=== PATIENT | male | born 1985 | race Caucasian/White ===

== ENCOUNTER 2017-11-19 20:40 | Observation (INO) ==
[2017-11-19] MEDS ORDERED: Ziprasidone injection 20 MG/ML VIAL IM ONE (21:15)
[2017-11-19 21:23] LABS: Basophils % 0.3 %; Eosinophils # 0.2 K/mcL (0.0-0.6); Eosinophils % 1.4 %; Hematocrit 48.1 % (37.5-50.1); Hemoglobin 15.9 g/dL (12.9-16.9); Immature Granulocytes % 0.4 % (0-4); Lymphocytes % 28.9 %; Mean Corpuscular HGB Conc 33.1 g/dL (31.6-35.5); Mean Corpuscular Hemoglobin 29.7 pg (28.0-33.3); Mean Corpuscular Volume 89.9 fL (83.0-100.0); Mean Platelet Volume 9.8 fL (9.4-12.4); Monocytes # 0.6 K/mcL (0.0-1.3); Monocytes % 5.9 %; Neutrophils # 6.5 K/mcL (1.6-8.9); Nucleated Red Blood Cells 0.2 /100 WBC (0); Platelet Count 357 K/mcL (140-400); Red Blood Count 5.35 M/mcL (4.19-5.50); Red Cell Distribution Width 12.7 % (11.5-14.5); Segmented Neutrophils % 63.1 %
[2017-11-19 21:29] LABS: Bilirubin,Urine Negative (Negative); Blood,Urine Negative (Negative); Clarity,Urine Clear (Clear); Color,Urine Yellow (Yellow); Glucose,Urine (UA) Normal (Normal); Ketones,Urine Negative (Negative); Leukocyte Esterase,Urine Negative (Negative); Nitrite,Urine Negative (Negative); Protein,Urine Negative (Neg-Trace); Specific Gravity,Urine 1.012 (1.010-1.025); Urobilinogen,Urine Normal (Normal)
[2017-11-19 21:37] LABS: Amphetamine Screen,Urine Negative ng/mL (Cutoff=1000); Barbiturate Screen,Urine Negative ng/mL (Cutoff=200); Benzodiazepines Screen,Urine Negative ng/mL (Cutoff=200); Cannabinoid Screen,Urine Negative ng/mL (Cutoff = 50); Cocaine Screen,Urine Negative ng/mL (Cutoff= 300); Opiate Screen,Urine Negative ng/mL (Cutoff=300); Phencyclidine Screen,Urine Negative ng/mL (Cutoff=25)
[2017-11-19 21:41] LABS: Ethanol 290 mg/dL (0-10)
[2017-11-19 21:45] LABS: BUN/Creatinine Ratio 10 (6-26); Blood Urea Nitrogen 9 mg/dL (6-20); Calcium 9.2 mg/dL (8.6-10.3); Carbon Dioxide 26 mEq/L (23-29); Chloride 105 mEq/L (98-107); Glucose 142 mg/dL (70-105); Osmolality,Calculated 287 (280-300); Potassium 4.2 mEq/L (3.5-5.1); Sodium 138 mEq/L (136-145); eGFR For African Americans > 60 (> 60); eGFR For Non-African Americans > 60 (> 60)
[2017-11-19 21:47] LABS: Acetaminophen < 1.0 mcg/mL (10-30); Salicylate < 5.0 mg/dL (15.0-30.0)
--- NOTE | 2017-11-19 21:54 | Emergency Department Note ---
START Narrative - START START: I examined this patient and my medical decision-making was reviewed with the Resident Physician. I agree with the documented findings, disposition and treatment plan as described except to the extent set forth below. 32 year old male present to the ED with complaints of SI/HI and was brought in by his family memebers due to intoxication. We will do a medical clearance and then consult 1A. Likely we will need to do a medical admit to medicine due to chronic alcoholism and consideration for withdrawl and need to be placed on CIWA protocol.
--- NOTE | 2017-11-19 23:35 | Emergency Department Note ---
Disposition Clinical Impression: Suicidal ideation, Intoxication Disposition: Admitted As Inpatient Condition: Good Referrals: NONE,PCP [Primary Care Provider] - General Adult HPI - General Chief complaint: ED Psychiatric Symptoms Stated complaint: SI/HI Time Seen by Provider: 11/19/17 20:49 Source: patient Limitations: no limitations Nursing Notes Reviewed: Yes Vital Signs Reviewed: Yes - History of Present Illness HPI Narrative: Patient presents today for evaluation of suicidal ideation. Patient has had alcohol problems. Patient is brought in by mother as he said he was trying to leave the house and the aspirate was going and he said he was going to kill himself. The patient is clinically intoxicated. Patient states that he does not know why he is here. Hhe said that he did not mean those things. Patient is threatening staff and is threatening to leave. Patient is mildly agitated. Patient will require some mild sedation. History of chronic alcohol use. Patient has gone through alcohol withdrawal in the past Pain Scale: 4 - Related Data Home Medications Medication Instructions Recorded Confirmed No Known Home Drugs 11/19/17 11/19/17 Allergies Allergy/AdvReac Type Severity Reaction Status Date / Time No Known Allergies Allergy Verified 04/05/17 22:27 Limitations: ROS unobtainable due to patients medical condition Past Medical History - Past Medical History Medical history: Reports: no medical history Surgical history: Reports: other Psychiatric history: Reports: no psych history - Social History Smoking Status: Current every day smoker Smokeless Tobacco Status: No Alcohol use: Reports: occasionally Drug use: Reports: none Physical Exam General: Well appearing, nontoxic, no acute distress Head: Normocephalic Atraumatic Eyes: PERRL, EOMI ENT: Airway patent, no stridor Neck: supple, no meningismus Chest: Lungs clear to auscultation bilateral Cardiac: Regular rate and rhythm, no murmurs, rubs or gallops Abdomen: soft, nontender, nondistended; no guarding, rebound, or tenderness to percussion Musculoskeletal: Calves symmetric, nontender, no palpable cord Skin: No rash, normal skin tone Neuro: Alert and Oriented to person, place, and time; No focal deficit, CN 2-12 symmetric and intact - General Limitations: no limitations General appearance: alert, in no apparent distress Course - Reevaluation(s) Reevaluation #1: Patient's blood alcohol significantly elevated. Patient will require 10 hours of observation in order to undergo one a evaluation. Patient will be admitted for observation until cleared for psychiatric evaluation. A psychiatric hold has been placed. - Consultations Consultation #1: Discussed with hospitalist. Patient has been accepted for admission. Vital Signs Temperature 97.8 F 11/19/17 20:44 Pulse Rate 119 11/19/17 20:44 Respiratory Rate 18 11/19/17 20:44 Blood Pressure 129/81 11/19/17 20:44 O2 Sat by Pulse Oximetry 96 11/19/17 20:44 Temperature 97.8 F 11/19/17 20:44 Pulse Rate 119 11/19/17 20:44 Respiratory Rate 18 11/19/17 20:44 Blood Pressure 129/81 11/19/17 20:44 O2 Sat by Pulse Oximetry 96 11/19/17 20:44 Oxygen Delivery Oxygen Delivery Room Air Medical Decision Making - Lab Data Result diagrams: 11/19/17 20:58 11/19/17 20:58 Lab Results 11/19/17 11/19/17 11/19/17 Range/Units 20:58 20:58 21:15 WBC 10.4 (4.3-11.1) K/mcL RBC 5.35 (4.19-5.50) M/mcL Hgb 15.9 (12.9-16.9) g/dL Hct 48.1 (37.5-50.1) % MCV 89.9 (83.0-100.0) fL MCH 29.7 (28.0-33.3) pg MCHC 33.1 (31.6-35.5) g/dL RDW 12.7 (11.5-14.5) % Plt Count 357 (140-400) K/mcL MPV 9.8 (9.4-12.4) fL Immature Gran % 0.4 (0-4) % Seg Neutrophils % 63.1 % Lymphocytes % 28.9 % Monocytes % 5.9 % Eosinophils % 1.4 % Basophils % 0.3 % Neutrophils # 6.5 (1.6-8.9) K/mcL Lymphocytes # 3.0 (0.6-4.6) K/mcL Monocytes # 0.6 (0.0-1.3) K/mcL Eosinophils # 0.2 (0.0-0.6) K/mcL Basophils # 0.0 (0.0-0.2) K/mcL Nucleated RBCs/100 WBC 0.2 H (0) /100 WBC Sodium 138 (136-145) mEq/L Potassium 4.2 (3.5-5.1) mEq/L Chloride 105 (98-107) mEq/L Carbon Dioxide 26 (23-29) mEq/L BUN 9 (6-20) mg/dL Creatinine 0.89 (0.70-1.30) mg/dL Est GFR ( Amer) > 60 (> 60) Est GFR (Non-Af Amer) > 60 (> 60) BUN/Creatinine Ratio 10 (6-26) Glucose 142 H (70-105) mg/dL Calculated Osmolality 287 (280-300) Calcium 9.2 (8.6-10.3) mg/dL Urine Color Yellow (Yellow) Urine Clarity Clear (Clear) Urine pH 6.0 (5.0-8.0) pH Units Ur Specific [place] 1.012 (1.010-1.025) Urine Protein Negative (Neg-Trace) mg/dL Urine Glucose (UA) Normal (Normal) mg/dL Urine Ketones Negative (Negative) mg/dL Urine Blood Negative (Negative) Urine Nitrite Negative (Negative) Urine Bilirubin Negative (Negative) Urine Urobilinogen Normal (Normal) mg/dL Ur Leukocyte Esterase Negative (Negative) Salicylates < 5.0 L (15.0-30.0) mg/dL Urine Opiates Screen (Yfgzpt=350) ng/mL Acetaminophen < 1.0 L (10-30) mcg/mL Ur Barbiturates Screen (Xauzxh=889) ng/mL Ur Phencyclidine Scrn (Cutoff=25) ng/mL Ur Amphetamines Screen (Zcnwlv=2034) ng/mL U Benzodiazepines Scrn (Bzwjyq=033) ng/mL Urine Cocaine Screen (Cutoff= 300) ng/mL U Marijuana (THC) Screen (Cutoff = 50) ng/mL Ethyl Alcohol 290 H (0-10) mg/dL 11/19/17 Range/Units 21:15 WBC (4.3-11.1) K/mcL RBC (4.19-5.50) M/mcL Hgb (12.9-16.9) g/dL Hct (37.5-50.1) % MCV (83.0-100.0) fL MCH (28.0-33.3) pg MCHC (31.6-35.5) g/dL RDW (11.5-14.5) % Plt Count (140-400) K/mcL MPV (9.4-12.4) fL Immature Gran % (0-4) % Seg Neutrophils % % Lymphocytes % % Monocytes % % Eosinophils % % Basophils % % Neutrophils # (1.6-8.9) K/mcL Lymphocytes # (0.6-4.6) K/mcL Monocytes # (0.0-1.3) K/mcL Eosinophils # (0.0-0.6) K/mcL Basophils # (0.0-0.2) K/mcL Nucleated RBCs/100 WBC (0) /100 WBC Sodium (136-145) mEq/L Potassium (3.5-5.1) mEq/L Chloride (98-107) mEq/L Carbon Dioxide (23-29) mEq/L BUN (6-20) mg/dL Creatinine (0.70-1.30) mg/dL Est GFR ( Amer) (> 60) Est GFR (Non-Af Amer) (> 60) BUN/Creatinine Ratio (6-26) Glucose (70-105) mg/dL Calculated Osmolality (280-300) Calcium (8.6-10.3) mg/dL Urine Color (Yellow) Urine Clarity (Clear) Urine pH (5.0-8.0) pH Units Ur Specific [place] (1.010-1.025) Urine Protein (Neg-Trace) mg/dL Urine Glucose (UA) (Normal) mg/dL Urine Ketones (Negative) mg/dL Urine Blood (Negative) Urine Nitrite (Negative) Urine Bilirubin (Negative) Urine Urobilinogen (Normal) mg/dL Ur Leukocyte Esterase (Negative) Salicylates (15.0-30.0) mg/dL Urine Opiates Screen Negative (Cxwoem=837) ng/mL Acetaminophen (10-30) mcg/mL Ur Barbiturates Screen Negative (Iazyjj=476) ng/mL Ur Phencyclidine Scrn Negative (Cutoff=25) ng/mL Ur Amphetamines Screen Negative (Myhavx=1380) ng/mL U Benzodiazepines Scrn Negative (Tofwsb=928) ng/mL Urine Cocaine Screen Negative (Cutoff= 300) ng/mL U Marijuana (THC) Screen Negative (Cutoff = 50) ng/mL Ethyl Alcohol (0-10) mg/dL
[2017-11-20] MEDS ORDERED: Naloxone 0.4 MG/ML INJ IVP PRN (04:53)
[2017-11-20] MEDS ORDERED: Acetaminophen 325 MG TABLET PO PRN (04:53)
[2017-11-20] MEDS ORDERED: MVI, adult with vitamin K 10 ML in 0.9 % Sodium Chloride 1,000 ML IVC ONE (04:56)
--- NOTE | 2017-11-20 05:04 | Internal Med History&Physical ---
Date of Encounter: 11/20/17 Time of Encounter: 04:59 Assessment and Plan (1) Suicidal ideation Current visit: Yes Status: Acute 32/male History of chronic alcoholism. Brought by mother as patient was threatening to harm himself. We educated the patient in the emergency room. He was given Geodon and after that he was calm down. On examination: Patient is in a deep sleep in observation unit. No obvious signs of trauma seen. Assessment: Suicidal ideation in a intoxicated person secondary to alcohol Plan: Admit as observation. Been on her back. Pain control with Tylenol. Consult psychiatric. Consult social media senior associate. Presently keep nothing by mouth. Patient on me that he does not want to harm himself what he said to his mother was under the influence of alcohol. I explained patient once the psychiatry evaluates him he can present his case to them. (2) Intoxication Current visit: Yes Status: Acute See above I do not think patient will go into delirium tremens at this point. But for a precautionary measure we will continue to assess CIWA scale (3) DVT prophylaxis Current visit: Yes Status: Acute scd Medical decision making: This patient has a moderate to severe risk of worsening in spite of being on appropriate medication due to the underlying comorbidities. Internal Medicine - H&P: HPI Chief complaint: Suicidal ideation/ethanol overdose. Admitted From: Emergency Dept Plans for Post Hospital Care: Home History of present illness: Mr. Martin is a 32 year old male who does not have primary care provider. Patient does not have any comorbid condition except chronic alcohol use. Patient had multiple episodes of alcohol withdrawal in the past. Patient was brought to the emergency room by his mother as she was concerned about patient. Patient has multiple times told his mother that he is going to hurt himself and possibility that he might end his life. Patient was pretty sure and form regarding this. This was the reason patient's mother was really concerned and she brought him to the emergency department for further evaluation. Emergency Department patient was agitated, was threatening to leave AGAINST MEDICAL ADVICE, was threatening to kill himself and this was the reason he received sedation. Reason for admission: Suicidal ideation in a patient who his intoxicated with alcohol. Alcohol level is 290 upon admission. She was pink slipped in the emergency department and transferred to medicine floor for further evaluation along with psych assessment. Patient is very intoxicated and above information I received from one-to-one communication with the ER physician/ER documentation and discussion with the ER nurses. Past Med Surg Social Fam HX - Past Medical History Medical history: no medical history Psychiatric history: no psych history - Past Surgical History Surgical History: other - Social History Smoking Status: Current every day smoker Smokeless Tobacco Status: No Alcohol use: occasionally Drug use: none - Family History Mother History Unknown: Yes Father History Unknown: Yes Internal Medicine - H&P: Meds No Known Home Drugs 11/19/17 [History] 3 Allergy/AdvReac Type Severity Reaction Status Date / Time No Known Allergies Allergy Verified 04/05/17 22:27 ROS unobtainable: due to mental status All Systems PM: A 10-system review of systems was performed and is negative for pertinent findings except as documented above in the HPI. - Constitutional Vitals: Temp Pulse Resp BP Pulse Ox 97.6 F 84 17 93/59 93 11/20/17 02:30 11/20/17 02:30 11/20/17 02:30 11/20/17 02:30 11/20/17 02:30 General appearance: Present: A&O X 2, pleasant, no acute distress - Head Head exam: Present: atraumatic, normocephalic - Eye Eye exam: Present: PERRL, conjuntiva pink, sclera anicteric Pupils: Present: PERRL - Neck Neck exam general surgery: Present: supple, trachea midline. Absent: lymphadenopathy - Respiratory Respiratory exam: Present: CTAB. Absent: accessory muscle use, rales, rhonchi, wheezes - Cardiovascular Cardiovascular exam: Present: RRR, +S1, +S2. Absent: diastolic murmur, gallop, rubs, systolic murmur - GI/Abdominal GI/Abdominal exam: Present: normal bowel sounds, soft, no peritoneal signs. Absent: distended, tenderness - Extremities Exam Extremities exam: Present: warm, radial pulses palpable and symmetrical. Absent : calf tenderness, cyanotic, pedal edema - Neurological Exam Neurological exam: Present: CN II-XII intact, oriented X3, no focal deficits. Absent: pronater drift, facial droop, speech deficit - Skin Skin exam: Present: dry, intact Internal Med - H&P Results - Labs CBC & Chem 7: 11/19/17 20:58 11/19/17 20:58
[2017-11-20 12:18] VITALS: BP 122/76
--- NOTE | 2017-11-20 13:55 | Consult Note ---
Date of Encounter: 11/20/17 Time of Encounter: 13:40 Assessment & Recommendation (1) Substance induced mood disorder Current visit: Yes Status: Acute Assessment & Recommendation: Client is denying SI and denying need for mental health services. Spoke with mother who feels alcohol dependence is the primary issue. She states client did well in rehab and she would like to see him do this again. She understands client would need to go voluntarily. Would recommend a social work consult for inpatient residential placement. Client would likely benefit from an antidepressant but he is not interested at this time and he can likely start one in a rehab facility if he changes his mind. History of Present Illness Requesting Physician: Dorinda Matta CNP Reason for consult: etoh dep, possible SI History of present illness: Mr. Martin is a 32 year old male who was brought to the ER in an intoxicated state. Mother reported to staff that client had threatened to go off and kill himself. On eval today client is denying everything. He admits to being drunk but denies he is suicidal. Claims he does not remember if he threatened to harm himself but denies intention of harming self at this time. Not currently linked with mental health services. Denies he wants linked with mental health services. Denies having a mental health history. No interest in medications or treatment for depression. Lives at home with mother. Client gave verbal permission for this program writer to speak with his mother, Lore Martin. This program writer called his mother and she reports client has been abusing alcohol heavily. She thinks alcohol is his main problem. Client recently lost job and is not able to see his child due to alcohol use. Has been through rehab in the past. Mother reports client was doing great when he was in rehab and she would like to see him get that help again. Mother states she does not believe client is a risk to himself if he can get help with his drinking. Discussed how referrals/recommendations can be made but that client will need to go voluntarily. Discussed how involuntary psychiatric hospitalization is an option but that sometimes this restriction on one's freedom can make things worse. Mother expressed understanding and indicated she felt his alcohol dependence was the main concern. CC: Dorinda Matta CNP Past Med Surg Social Fam HX - Past Medical History Medical history: no medical history - Past Psychiatric History Psychiatric history: Reports: depression Family psychiatric history: Unknown Family History of Suicide: Unknown - Past Surgical History Surgical History: other - Social History Smoking Status: Current every day smoker Smokeless Tobacco Status: No Alcohol use: occasionally Drug use: none - Family History Mother History Unknown: Yes Father History Unknown: Yes Medications & Allergies No Known Home Drugs 11/19/17 [History] 3 Allergy/AdvReac Type Severity Reaction Status Date / Time No Known Allergies Allergy Verified 04/05/17 22:27 Review of Systems Constitutional: Denies: fever, chills, weakness, weight change Eyes: Denies: eye pain, vision change Ears, Nose, Throat: Denies: ear pain, throat pain, dental pain, hearing loss, congestion Cardiovascular: Denies: chest pain, palpitations, dyspnea on exertion Respiratory: Denies: cough, dyspnea, wheezes Gastrointestinal: Denies: abdominal pain, nausea, vomiting, diarrhea, constipation Genitourinary male: Denies: urgency, dysuria, frequency, genital lesions Genitourinary female: Denies: urgency, dysuria, frequency, abnormal menses, dyspareunia Musculoskeletal: Denies: joint swelling, joint pain Integumentary: Denies: rash, lesions, pruritus Neurological: Denies: headache, weakness, numbness, memory loss Endocrine: Denies: fatigue, heat or cold intolerance Hematologic/Lymphatic: Denies: easy bruising, lymphadenopathy Allergic/Immunologic: Denies: urticaria, itchy eyes Mental Status Exam Patient orientation: Yes Person, Yes Time, Yes Place Level of alertness: Alert Patient appearance: Disheveled Behavior: guarded Psychomotor activity: Normal Eye contact: Maintains Eye Contact Mood description: Irritable Affect description: congruent with mood Speech pattern: Normal rate, Normal rhythm, Normal tone Speech volume: Normal Thought process: Linear Thought content: No Suicidal ideation, No Homicidal ideation, No Overt delusions Perceptual disturbances: No Auditory hallucinations, No Visual hallucinations Attention span: Capable of Focused Attention Memory description: Grossly Intact Patient reliability: Questionable Historian Intelligence estimate: Average Judgment: Limited Insight: Minimal Results - Vital Signs Vital signs: Temp Pulse Resp BP Pulse Ox 97.6 F 91 16 122/76 94 11/20/17 12:17 11/20/17 12:17 11/20/17 12:17 11/20/17 12:17 11/20/17 12:17 - Labs Labs: Laboratory Last Values WBC 10.4 K/mcL (4.3-11.1) 11/19/17 20:58 RBC 5.35 M/mcL (4.19-5.50) 11/19/17 20:58 Hgb 15.9 g/dL (12.9-16.9) 11/19/17 20:58 Hct 48.1 % (37.5-50.1) 11/19/17 20:58 MCV 89.9 fL (83.0-100.0) 11/19/17 20:58 MCH 29.7 pg (28.0-33.3) 11/19/17 20:58 MCHC 33.1 g/dL (31.6-35.5) 11/19/17 20:58 RDW 12.7 % (11.5-14.5) 11/19/17 20:58 Plt Count 357 K/mcL (140-400) 11/19/17 20:58 MPV 9.8 fL (9.4-12.4) 11/19/17 20:58 Immature Gran % 0.4 % (0-4) 11/19/17 20:58 Seg Neutrophils % 63.1 % 11/19/17 20:58 Lymphocytes % 28.9 % 11/19/17 20:58 Monocytes % 5.9 % 11/19/17 20:58 Eosinophils % 1.4 % 11/19/17 20:58 Basophils % 0.3 % 11/19/17 20:58 Neutrophils # 6.5 K/mcL (1.6-8.9) 11/19/17 20:58 Lymphocytes # 3.0 K/mcL (0.6-4.6) 11/19/17 20:58 Monocytes # 0.6 K/mcL (0.0-1.3) 11/19/17 20:58 Eosinophils # 0.2 K/mcL (0.0-0.6) 11/19/17 20:58 Basophils # 0.0 K/mcL (0.0-0.2) 11/19/17 20:58 Nucleated RBCs/100 WBC 0.2 /100 WBC (0) H 11/19/17 20:58 Sodium 138 mEq/L (136-145) 11/19/17 20:58 Potassium 4.2 mEq/L (3.5-5.1) 11/19/17 20:58 Chloride 105 mEq/L (98-107) 11/19/17 20:58 Carbon Dioxide 26 mEq/L (23-29) 11/19/17 20:58 BUN 9 mg/dL (6-20) 11/19/17 20:58 Creatinine 0.89 mg/dL (0.70-1.30) 11/19/17 20:58 Est GFR ( Amer) > 60 (> 60) 11/19/17 20:58 Est GFR (Non-Af Amer) > 60 (> 60) 11/19/17 20:58 BUN/Creatinine Ratio 10 (6-26) 11/19/17 20:58 Glucose 142 mg/dL (70-105) H 11/19/17 20:58 Calculated Osmolality 287 (280-300) 11/19/17 20:58 Calcium 9.2 mg/dL (8.6-10.3) 11/19/17 20:58 Urine Color Yellow (Yellow) 11/19/17 21:15 Urine Clarity Clear (Clear) 11/19/17 21:15 Urine pH 6.0 pH Units (5.0-8.0) 11/19/17 21:15 Ur Specific [place] 1.012 (1.010-1.025) 11/19/17 21:15 Urine Protein Negative mg/dL (Neg-Trace) 11/19/17 21:15 Urine Glucose (UA) Normal mg/dL (Normal) 11/19/17 21:15 Urine Ketones Negative mg/dL (Negative) 11/19/17 21:15 Urine Blood Negative (Negative) 11/19/17 21:15 Urine Nitrite Negative (Negative) 11/19/17 21:15 Urine Bilirubin Negative (Negative) 11/19/17 21:15 Urine Urobilinogen Normal mg/dL (Normal) 11/19/17 21:15 Ur Leukocyte Esterase Negative (Negative) 11/19/17 21:15 Salicylates < 5.0 mg/dL (15.0-30.0) L 11/19/17 20:58 Urine Opiates Screen Negative ng/mL (Fxznve=975) 11/19/17 21:15 Acetaminophen < 1.0 mcg/mL (10-30) L 11/19/17 20:58 Ur Barbiturates Screen Negative ng/mL (Jpctdp=129) 11/19/17 21:15 Ur Phencyclidine Scrn Negative ng/mL (Cutoff=25) 11/19/17 21:15 Ur Amphetamines Screen Negative ng/mL (Fjhotl=4928) 11/19/17 21:15 U Benzodiazepines Scrn Negative ng/mL (Ubzyab=586) 11/19/17 21:15 Urine Cocaine Screen Negative ng/mL (Cutoff= 300) 11/19/17 21:15 U Marijuana (THC) Screen Negative ng/mL (Cutoff = 50) 11/19/17 21:15 Ethyl Alcohol 290 mg/dL (0-10) H 11/19/17 20:58 Consult Discharge Plan - Plan Referrals: NONE,PCP [Primary Care Provider] -
--- NOTE | 2017-11-20 14:10 | Discharge Summary ---
Orders not resulted at time of discharge: Pending orders 11/20/17 01:10 Consult to Creative Director [CONS] Routine 11/20/17 04:57 Consult to Psychiatry [CONS] Routine 11/21/17 04:00 Activated Partial Thrombo Time [COAG] AM 0400 Complete Blood Count [HEME] AM 0400 Comprehensive Metabolic Panel AM 0400 Magnesium AM 0400 Phosphorous AM 0400 Prothrombin Time INR [COAG] AM 0400 Date of Encounter: 11/20/17 Time of Encounter: 14:08 - Discharge Diagnosis (1) Intoxication Priority: Primary Status: Acute Comments: Patient was intoxicated on arrival to the emergency room last night. This morning he is totally oriented and denies any knowledge of what happened last night. He states he has been binge drinking and does not drink heavily every day. He was a 1 on the [employer]. He declined alcoholic rehabilitation and did not care for any information did not want to speak to the social media marketing analyst regarding same. (2) Substance induced mood disorder Priority: Primary Status: Acute Comments: Patient denied suicidal ideation and denied need for mental health services. He did not wish to be treated for depression. He does not wish to go to a rehabilitation facility. It was offered that if he would decide to heat could obtain information. He did not want anything from the social media marketing analyst today. (3) Suicidal ideation Priority: Primary Status: Acute Comments: Mr. Martin is a 32-year-old male who was brought to the ER an intoxicated state. His mother had reported to staff that he had threatened a cough and kill himself. He is currently denying this ever occurred. He states he was drunk and does not remember if he threatened to kill himself or not. At this time he states he has no intention of harming himself or others. He has not been linked with mental health services and denies wanting to be at this time. Psychiatry saw the patient and he gave her verbal permission to talk to his mother. 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 According to the record he recently lost his job and has not been able to see this child due to this alcohol use. He has been to alcoholic rehabilitation in the past. The mother requested he go back to rehabilitation. This is purely a volunteer option. The patient declines any information on rehabilitation and is not interested at this time. Patient was discharged after being evaluated by psychiatry. He expressed that he did not wish to harm himself during our conversation. Hospital course: Mr. Martin is a 32 year old male who was admitted through the ER with intoxication and a verbal statement from the mother that he was expressing a desire to kill himself. Psychiatric department saw the patient and has deemed that he is okay for discharge. He declined any medications for depression,, any further psychiatric intervention, and did not desire any information on alcoholic rehabilitation. - Time Spent with Patient Total time spent providing and/or coordinating discharge services: Less than 30 minutes - Discharge Medications Home Medications: No Known Home Drugs 11/19/17 [History] Allergies/Adverse Reactions: 3 Allergy/AdvReac Type Severity Reaction Status Date / Time No Known Allergies Allergy Verified 04/05/17 22:27 Date of admission: 11/19/17 23:17 Primary care physician: PCP NONE Consults: 11/20/17 01:10 Consult to Creative Director [CONS] Routine Reason for SW Consult: admission for ETOH abuse/ SI/ HI 11/20/17 04:57 Consult to Psychiatry [CONS] Routine Consulting Provider: Psychiatry Uma Reason for Consult: ?Suicidal ideation/ Etoh overdose. Call Completed: No Discharging clinician: Katina Patton Anticipated date of discharge: 11/20/17 - Constitutional Vitals: Temp Pulse Resp BP Pulse Ox 97.6 F 91 16 122/76 94 11/20/17 12:17 11/20/17 12:17 11/20/17 12:17 11/20/17 12:17 11/20/17 12:17 General appearance: Present: cooperative, A&O X 2, pleasant, answers questions appropriately - Head Head exam: Present: atraumatic, normocephalic - Eye Eye exam: Present: PERRL, conjuntiva pink, sclera anicteric Pupils: Present: PERRL - Neck Neck exam general surgery: Present: supple, trachea midline. Absent: lymphadenopathy - Respiratory Respiratory exam: Present: CTAB. Absent: accessory muscle use, rales, rhonchi, wheezes - Cardiovascular Cardiovascular exam: Present: RRR, +S1, +S2. Absent: diastolic murmur, gallop, rubs, systolic murmur - GI/Abdominal GI/Abdominal exam: Present: normal bowel sounds, soft, no peritoneal signs. Absent: distended, tenderness - Extremities Exam Extremities exam: Present: warm, radial pulses palpable and symmetrical. Absent : calf tenderness, cyanotic, pedal edema - Neurological Exam Neurological exam: Present: CN II-XII intact, oriented X3, no focal deficits. Absent: pronater drift, facial droop, speech deficit - Skin Skin exam: Present: dry, intact, warm Additional comments: Multiple tattoos - Patient Status Disposition: Home, Self-Care Condition: Good Functional capacity at discharge: independent ambulation Overall status at discharge: patient is back to baseline - Discharge Instructions Instructions: Mood Disorders (DC), Alcohol Intoxication (DC), Suicide Prevention for Adults (DC) Follow Up With: NONE,PCP [Primary Care Provider] - Forms: ED Satisfaction Letter Additional Instructions: Declined offer of recommendations for alcohol rehabilitation. Also is not interested in antidepressant as per psychiatry's note. Patient is not interested in any further outpatient support at this time. - Diet and Activity Activity: resume usual activities as tolerated
== END 2017-11-20 14:55 | disposition home or self-care (01) ==
LOC: 3BNU 20:40 → EMEROO 20:40 → 3BNU 23:58
PROVIDERS: ADMIT Internal Medicine; ATTEND Registered Nurse